=== PATIENT | female | born 1970 | race Caucasian/White ===

== ENCOUNTER → 2023-09-30 | Emergency (ER) | payer SELFPAY ==
[~2023-09-30] MED LIST: ALBUTEROL 2.5 MG/3 ML NEB SOL ONE; HYDROCODONE/APAP 5/325 MG TAB ONE; IPRATROPIUM BROM 0.5MG/2.5ML ONE; NA CHLORIDE 0.9% 1,000 ML ONE; NA CHLORIDE 0.9% 100 ML ONE; NA CHLORIDE 0.9% 250 ML ONE; NA CHLORIDE 0.9% 500 ML ONE; PIPERACIL/TAZO 3.375 GM VIAL IV ONE; VANCOMYCIN 1 GM/VIAL ONE
--- OUTSIDE RECORDS SUMMARY | 2023-09-30 18:50 | XMS REPORT | Continuity of Care Document ---
Author Name Unknown Address [address] [facility] [address] [place] [address] [facility] thconnect Address [address] [facility] [place] [place] [address] Care Team Providers Care Freight Rate Specialist Name Role Phone Pcp, Patient Does Not Have A Primary Care Physic gui CAMERON DOWD Attending Clinician Unavailable CAMERON DOWD Attending Clinician Unavailable STEWART EDWARDS Attending Clinician Unavailable Stewart Edwards MD Attending Clinician CORIN STEIN Attending Clinician Unavailab Corin Grigsby DO Attending Clinician [phone] Payers Payer Name Policy Type Policy Number Effective Date Expirati on Date Source [facility] [id number] 2023 00:00:00 Allergies, Adverse Reactions, Alerts Allergy Name Allergy Type Status Severity Reaction(s) Onset Date Inactive Date Treating Clinician Comments Source NO KNOWN ALLERGIE S Drug Class Active Univers [facility] Social History Social Habit Start Date Stop Date Quantity Comments Source Sexual [facility] History of tobacco use Occasional tobacco smoker [facility] Alcohol intake 2023-09-13 00:00:00 2023-09-13 00:00:00 0 /d [facility] History of Social function 2023-09-13 00:00:00 2023-09-13 00:00:00 [facility] Sex Assigned At 1970 00:00:00 1970 00:00:00 [facility] Smoking Status Start Date Stop Date Source Occasional tobacco smoker Un [facility] Medications Ordered Medication Name Filled Medication Name Start Date Stop Date Current Medication? Ordering Clinician Indication Dosage Frequency Signature (SIG) Comments Components Source acetaminoph en (TYLENOL) tablet 650 mg 2022-10 04:15: 00 09-17 04:26 :00 No 650mg 650 mg, Oral, ONCE, 1 dose, On Tue09/16/23 at 2215, [facility] methocarbam oL (ROBAXIN) tablet 500 mg 2022-10 04:09: 00 09-17 04:26 :00 No 500mg 500 mg, Oral, ONCE NOW, 1 dose, On Tue09/16/23 at 2215, [facility] acute hospital methocarbam oL (ROBAXIN) tablet 1,000 mg 2022-10 12:15: 00 09-13 12:15 :00 No 1000mg 1,000 mg, Oral, ONCE, 1 dose, On Tue09/13/23 at 0615, [facility] acute hospital butalbital- acetaminoph en-caff (ESGIC) 50-325-40 mg tablet 1 tablet 2022-10 07:15: 00 09-13 07:12 :00 No 1{tbl} 1 tablet, Oral, ONCE, 1 dose, On Tue09/13/23 at 0115, [facility] acute hospital NaCl 0.9% (NS) IV infusion 1,000 mL 2022-10 07:00: 00 09-13 08:00 :00 No 1000mL at 999 mL/hr, Intravenou s, ONCE, 1 dose, On Tue09/13/23 at 0100, [facility] methocarbam oL (ROBAXIN) tablet 1,000 mg 2022-10 04:00: 00 09-13 04:15 :00 No 1000mg 1,000 mg, Oral, ONCE, 1 dose, On Tue09/12/23 at 2200, General acute hospital NaCl 0.9% (NS) bolus infusion 1,000 mL 2022-10 03:00: 00 09-13 02:40 :00 No 1000mL at 999 mL/hr, 1,000 mL, IV Piggyback, ONCE, 1 dose, On Tue09/12/23 at 2100, STAT [facility] ibuprofen (IBU) tablet 800 mg 2022-10 02:30: 00 09-13 02:26 :00 No 800mg 800 mg, Oral, ONCE, 1 dose, On Tue09/12/23 at 2030, DAVID [facility] methocarbam oL (ROBAXIN) tablet 1,000 mg 2022-10 15:30: 00 09-09 15:42 :00 No 1000mg 1,000 mg, Oral, ONCE, 1 dose, On Tue09/09/23 at 0930, DAVID [facility] methocarbam oL 750 mg tablet 2022-10 00:00: 00 Yes [id number] 750mg Take 1 tablet by mouth every 6 (six) hours as needed for Pain (scale 1-3). [facility] methocarbam oL 750 mg tablet 2022-10 00:00: 00 Yes [id number] 750mg Take 1 tablet by mouth every 6 (six) hours as needed for Pain (scale 1-3). [facility] methocarbam oL 750 mg tablet 2022-10 00:00: 00 Yes [id number] 750mg Take 1 tablet by mouth every 6 (six) hours as needed for Pain (scale 1-3). [facility] cyclobenzap rine (FLEXERIL) 5 mg tablet 07-01 00:00: 00 Yes 5mg Take 1 tablet by mouth 3 (three) times daily. [facility] naproxen (NAPROSYN) 375 mg tablet 07-01 00:00: 00 Yes 375mg Take 1 tablet by mouth 2 (two) times daily with meals. [facility] cyclobenzap rine (FLEXERIL) 5 mg tablet 07-01 00:00: 00 Yes 5mg Take 1 tablet by mouth 3 (three) times daily. [facility] naproxen (NAPROSYN) 375 mg tablet 07-01 00:00: 00 Yes 375mg Take 1 tablet by mouth 2 (two) times daily with meals. [facility] cyclobenzap rine (FLEXERIL) 5 mg tablet 07-01 00:00: 00 Yes 5mg Take 1 tablet by mouth 3 (three) times daily. [facility] naproxen (NAPROSYN) 375 mg tablet 07-01 00:00: 00 Yes 375mg Take 1 tablet by mouth 2 (two) times daily with meals. [facility] HYDROcodone -acetaminop hen (NORCO) 10-325 mg tablet 05-16 16:15: 10 Yes 1{tbl} Take 1 tablet by mouth every 6 (six) hours as needed. [facility] HYDROcodone -acetaminop hen (NORCO) 10-325 mg tablet 05-16 16:15: 10 Yes 1{tbl} Take 1 tablet by mouth every 6 (six) hours as needed. [facility] HYDROcodone -acetaminop hen (NORCO) 10-325 mg tablet 05-16 16:15: 10 Yes 1{tbl} Take 1 tablet by mouth every 6 (six) hours as needed. [facility] cyclobenzap rine (FLEXERIL) 5 mg tablet 05-16 00:00: 00 Yes 5mg Take 1 tablet by mouth 3 (three) times daily. [facility] cyclobenzap rine (FLEXERIL) 5 mg tablet 05-16 00:00: 00 Yes 5mg Take 1 tablet by mouth 3 (three) times daily. [facility] cyclobenzap rine (FLEXERIL) 5 mg tablet 05-16 00:00: 00 Yes 5mg Take 1 tablet by mouth 3 (three) times daily. [facility] Vital Signs Vital Name Observation Time Observation Value Comments Lior saavedra Systolic blood pressure 2023-09-17 03:32:00 140 mm[Hg] [facility] Diastolic blood pressure 2023-09-17 03:32:00 88 mm[Hg] [facility] Heart rate 2023-09-17 03:32:00 82 /min Un[facility] Body temperature 2023-09-17 03:32:00 37.17 Mamie [facility] Respiratory rate 2023-09-17 03:32:00 32 /min [facility] Body weight 2023-09-17 03:32:00 49.896 kg [facility] BMI 2023-09-17 03:32:00 16.73 kg/m2 [facility] Oxygen saturation in Arterial blood by Pulse oximetry 2023-09-17 03:32:00 98 /min [facility] Systolic blood pressure 2023-09-13 12:00:00 131 mm[Hg] [facility] Diastolic blood pressure 2023-09-13 12:00:00 99 mm[Hg] [facility] Heart rate 2023-09-13 12:00:00 92 /min Un[facility] Body temperature 2023-09-13 12:00:00 37.22 Mamie [facility] Respiratory rate 2023-09-13 12:00:00 18 /min [facility] Oxygen saturation in Arterial blood by Pulse oximetry 2023-09-13 12:00:00 96 /min [facility] Systolic blood pressure 2023-09-09 15:21:00 107 mm[Hg] [facility] Diastolic blood pressure 2023-09-09 15:21:00 87 mm[Hg] [facility] Heart rate 2023-09-09 15:21:00 107 /min [facility] Body temperature 2023-09-09 15:21:00 37 Mamie [facility] Respiratory rate 2023-09-09 15:21:00 22 /min [facility] Body height 2023-09-09 15:21:00 172.7 cm [facility] Body weight 2023-09-09 15:21:00 49.896 kg [facility] BMI 2023-09-09 15:21:00 16.73 kg/m2 [facility] Oxygen saturation in Arterial blood by Pulse oximetry 2023-09-09 15:21:00 97 /min [facility] Procedures Procedure Date / Time Performed Performing Clinician Source POCT TEST 2023-09-13 07:16:00 Stewart Edwards [facility] URINALYSIS 2023-09-13 07:14:00 Stewart Edwards [facility] COMP. METABOLIC PANEL ([id number]) 2023-09-13 01:58:00 Stewart Edwards [facility] SALICYLATE 2023-09-13 01:58:00 Stewart Edwards [facility] ETHANOL 2023-09-13 01:58:00 [facility] URINE DRUG (IMMUNOASSAY) - COMPREHENSIVE DRUG SCREEN 2023-09-13 01:58:00 Stewart Edwards [facility] CBC WITH DIFF 2023-09-13 01:58:00 Stewart Edwards [facility] COVID-19 (MOLECULAR TESTING NUCLEIC ACID AMPLIFICATION) 2023-09-13 01:58:00 Stewart dEwards [facility] COVID-19 (ID NOW RAPID TESTING) 2023-09-13 01:58:00 Stewart Edwards [facility] NOTICE OF PRIVACY PRACTICES 2023-09-09 15:15:21 Doctor Unassigned, [place] [facility] CONSENT/REFUSAL FOR DIAGNOSIS AND TREATMENT 2023-09-09 15:13:57 Doctor Unassigned, [place] [facility] Encounters Start Date/Time End Date/Time Encounter Type Admission Type Attending Clinicians Care Facility Care Department Encounter ID Source 2023-09-19 17:08:55 2023-09-19 17:08:55 Outpatient [facility] [id number] Severiano Diane 2023-09-16 21:41:00 2023-09-16 23:31:00 Emergency CAMERON NATHAN TIMOTHY [facility] E[facility] [id number] [facility] 2023-09-16 21:41:00 2023-09-16 23:31:00 Emergency [facility] [id number] [facility] 2023-09-16 08:44:22 2023-09-16 08:44:22 Outpatient [facility] [id number] Severiano Diane 2023-09-12 19:54:00 2023-09-13 06:30:00 Emergency X STEWART EDWARDS [facility] ERT [id number] [facility] 2023-09-12 19:54:00 2023-09-13 06:30:00 Emergency Stewart Edwards S [facility] [id number] [facility] 2023-09-09 09:23:00 2023-09-09 09:45:00 Emergency X CORIN STEIN [facility] ERT [id number] [facility] 2023-09-09 09:23:00 2023-09-09 09:45:00 Emergency Corin Stein [facility] [id number] [facility] Results Test Description Test Time Test Comments Results Result Co mments Source [facility] WITH [id number] 03:07:33* Test Item Value Reference Range Interpretation Comme nts WBC (test code = 6690-2) 11.28 See_Comment H [Automated messa ge] The system which generated this result transmitted reference range: 4.30 - 11.10 10*3/?L. The reference range was not used to interpret this result as normal/abnormal. RBC (test code = 789-8) 3.50 See_Comment L [Automated messa ge] The system which generated this result transmitted reference range: 3.93 - 5.25 10*6/?L. The reference range was not used to interpret this result as normal/abnormal. HGB (test code = 718-7) 11.3 g/dL 11.6-15.0 L HCT (test code = 4544-3) 32.1 % 35.7-45.2 L MCV (test code = 787-2) 91.7 fL 80.6-95.5 MCH (test code = 785-6) 32.3 pg 25.9-32.8 MCHC (test code = 786-4) 35.2 g/dL 31.6-35.1 H RDW-SD (test code = 76276-8) 38.4 fL 39.0-49.9 L RDW-CV (test code = 788-0) 11.6 % 12.0-15.5 L PLT (test code = 777-3) 70 See_Comment L [Automated [employer]] The system which generated this result transmitted reference range: 166 - 358 10*3/?L. The reference range was not used to interpret this result as normal/abnormal. MPV (test code = 30005-6) 9.9 fL 9.5-12.9 IPF % (test code = 1784109680) 7.7 % 1.3-7.7 Platelet count measured by fluorescence method. NRBC/100 WBC (test code = 6598023151) 0.4 See_Comment [Automated [employer]] The system which generated this result transmitted reference range: 0.0 - 10.0 /100 WBCs. The reference range was not used to interpret this result as normal/abnormal. NRBC x10^3 (test code = 4166464913) 0.04 See_Comment [Automated [employer]] The system which generated this result transmitted reference range: 10*3/?L. The reference range was not used to interpret this result as normal/abnormal. GRAN MAT (NEUT) % (test code = 770-8) 68.6 % IMM GRAN % (test code = 4526800162) 7.50 % LYMPH % (test code = 736-9) 14.5 % MONO % (test code = 5905-5) 5.2 % EOS % (test code = 713-8) 3.5 % BASO % (test code = 706-2) 0.7 % GRAN MAT x10^3(ANC) (test code = 7550961584) 7.73 10*3/uL 1.88-7.09 H IMM GRAN x10^3 (test code = 0554861439) 0.85 10*3/uL 0.00-0.06 H LYMPH x10^3 (test code = 731-0) 1.63 10*3/uL 1.32-3.29 MONO x10^3 (test code = 742-7) 0.59 10*3/uL 0.33-0.92 EOS x10^3 (test code = 711-2) 0.40 10*3/uL 0.03-0.39 H BASO x10^3 (test code = 704-7) 0.08 10*3/uL 0.01-0.07 H BANDS (test code = 8334586637) Increased A REACT LYMPHS (test code = 8863187334) Rare TOXIC CHANGES (test code = 803-7) Present A GIANT PLATELETS (test code = 5908-9) Present See_Comment A [Automated [employer]] The system which generated this result transmitted reference range: (none). The reference range was not used to interpret this result as normal/abnormal. Lab Interpretation (test code = 04424-9) [facility]normal [facility] 02:37:25 SALICYLATE<10mg/L111/12/2022 8:37 PM [facility]Therapeutic Range: ? Analgesic and Antipyretic Use ? 20- 100 mg/L ? ? Anti-Inflammatory Use ? 100-250 mg/L Toxic Range: ? Greater than 300 mg/[facility]OL2023-11-28 02:37:20ALCOHOL<10mg/dL09/12/2023 8:37 PM [facility]<10 Axpowfdi52-961 Toxic>100 Depression of WIRE WEAVER CLOTH>400 Fatalities ReportedEastland Memorial HospitalACETAMINOPHEN2023-11-28 02:37:15* Test Item Value Reference Range Interpretation Comme nts ACETAMINOP (test code = 7392258535) 10.0-30.0 L YAZMIN (test code = YAZMIN) Toxic: Greater rosalva n 200 ug/mL @ 4 hour post ingestion or greater than 50 ug/mL @ 12 hour post ingestion Lab Interpretation (test code = 47532-1) Abnormal [facility]OLIC PANEL (89424)2023-09-13 02:28:22* Test Item Value Reference Range Interpretation Comme nts NA (test code = 9089448106) 135 mmol/L 135-145 K (test code = 5561291588) 3.9 mmol/L 3.5-5.0 CL (test code = 7857668611) 98 mmol/L 98-108 CO2 TOTAL (test code = 0462446905) 29 mmol/L 23-31 AGAP (test code = 6160243903) 8 2-16 BUN (test code = 8398699524) 17 mg/dL 7-23 GLUCOSE (test code = 8530910433) 114 mg/dL 70-110 H CREATININE (test code = 9722221723) 0.72 mg/dL 0.50-1.04 TOTAL BILI (test code = 2566859557) 1.1 mg/dL 0.1-1.1 CALCIUM (test code = 3664956672) 10.1 mg/dL 8.6-10.6 T PROTEIN (test code = 5795026041) 7.2 g/dL 6.3-8.2 ALBUMIN (test code = 4251809870) 4.3 g/dL 3.5-5.0 ALK PHOS (test code = 0028879478) 209 U/L 34-122 H ALTv (test code = 1742-6) 16 U/L 5-35 AST(SGOT) (test code = 1766785381) 93 U/L 13-40 H eGFR (test code = 64265-4) 100.1 mL/min/1.73m2 CKD-EPI eGFR (2020). Assuming creatinine has been stable day-to-day for at least three months, the eGFR indicates Category G1 (>= 90 mL/min/1.73 m2) Lab Interpretation (test code = 61421-8) Abnormal [facility]
[2023-09-30 19:55] LABS: Albumin 2.7 g/dL (3.4-5.0); Bilirubin Direct 0.3 mg/dL (0-0.2); Bilirubin Indirect, Calculated 0.5 mg/dL (0.2-0.8); Bilirubin Total 0.8 mg/dL (0.2-1.0); Magnesium 2.5 mg/dL (1.6-2.4); Potassium 3.9 mEq/L (3.5-5.1); Protein, Total 7.3 g/dL (6.4-8.2)
[2023-09-30 20:02] LABS: Absolute Lymphocytes (CBC) 2.2 K/uL (0.7-4.9); Hematocrit 8.1 % (36.0-45.0); Lymphocytes % 24.5 % (15.3-44.8); MCV 91.8 fL (80-100); MPV 8.6 fL (7.6-11.3); Platelets 33 thou/uL (152-406); RBC Red Blood Cell Count 0.88 M/uL (3.86-4.86)
[2023-09-30 20:16] LABS: Troponin High Sensitivity 328.5 pg/mL (<58.9)
[2023-09-30 20:17] LABS: Specific Gravity 1.013 (1.005-1.030)
[2023-09-30 20:20] LABS: Specific Gravity 1.013 (1.005-1.030); Urine Bacteria <20 /HPF (<20); Urine Bilirubin NEGATIVE (Negative); Urine Blood Negative (Negative); Urine Clarity Turbid (Clear); Urine Color Light-Yellow (Yellow); Urine Glucose NEGATIVE (Negative); Urine Mucus Slight /HPF (None Seen); Urine Protein NEGATIVE (Negative); Urine RBC <5 /HPF (None Seen); Urine Urobilinogen Normal (Normal)
[2023-09-30 20:21] LABS: SARS-COV-2 RT PCR NEGATIVE (NEGATIVE)
[2023-09-30 20:25] LABS: Protime INR 1.41
[2023-09-30 20:27] LABS: Barbiturates NEGATIVE (NEGATIVE); Benzodiazepines NEGATIVE (NEGATIVE); Cocaine NEGATIVE (NEGATIVE); METHAMPHETAM NEGATIVE (NEGATIVE); Methadone NEGATIVE (NEGATIVE); Opiates NEGATIVE (NEGATIVE); Phencyclidine NEGATIVE (NEGATIVE); THC Cannibis NEGATIVE (NEGATIVE)
--- NOTE | 2023-09-30 20:52 | RAD REPORT ---
EXAM DESCRIPTION: CT - Head C Spine Mpr Wo Con - 09/30/2023 8:04 pm CLINICAL HISTORY: Head and neck injury status post fall. Head and neck pain COMPARISON: None. TECHNIQUE: Computed axial tomography of the head and cervical spine was obtained. Sagittal and coronal reconstruction was performed. All CT scans are performed using dose optimization technique as appropriate and may include automated exposure control or mA/KV adjustment according to patient size. FINDINGS: An intracranial bleed is not seen. The ventricles are normal in caliber. No significant hypodensity within the brain. An extra-axial fluid collection is not noted. Fluid within the visualized sinuses and mastoids is not seen 14 millimeter lytic lesion is present within the left aspect of the T2 vertebral body. There is corti sharon disruption and mild compression of the vertebral body. Slight anterior subluxation C4 on C5. Slight posterior subluxation of C6 on C7. Loss of the normal lo rdosis may be secondary to muscle spasm. No fracture or dislocation noted. Us spondylosis distal cerv ical spine IMPRESSION: No acute intracranial abnormality is seen. A cervical fracture is not visualized. 14 millimeter lytic lesion T2 vertebral body with mild compression. This may represent a pathologic f racture. It is recommended that the patient have an MRI of the thoracic spine for further evaluation If the patient continues to have symptoms to suggest intracranial /spinal cord pathology then MRI wou ld be recommended
[2023-09-30 20:53] LABS: Blood Morphology Comment NOTED (NOT SEEN); Hypochromasia 1+; Platelet Estimate DECR; White Blood Cell Scan OK (OK)
--- NOTE | 2023-09-30 20:55 | RAD REPORT ---
EXAM DESCRIPTION: Sherri Single View09/30/2023 7:15 pm CLINICAL HISTORY: Chest pain COMPARISON: none FINDINGS: Moderate bilateral interstitial opacities The heart is normal size IMPRESSION: Moderate bilateral interstitial lung opacities. These may represent an acute process suc h as viral pneumonia or pneumonitis superimposed over pulmonary fibrosis
--- NOTE | 2023-10-01 | ER ---
Nurse's Notes [facility] Name: Susan Castro Age: 52 yrs Sex: Female : 1970 Arrival Date: 09/30/2023 Time: 18:44 Bed 4 Private MD: Diagnosis: Other specified anemias;Thrombocytopenia, unspecified;Other specified sepsis;Pneumonia in diseases classified elsewhere Presentation: 09/30 18:49 Chief complaint: Found in car by mother today, last seen 2 normal weeks ago. Pt reports hb SOB and chest pain for "about a month.". Coronavirus screen: Client presents with at least one sign or symptom that may indicate coronavirus-19. Provider contacted for isolation considerations. Ebola Screen: No symptoms or risks identified at this time. 18:49 Method Of Arrival: Wheelchair hb 19:03 Initial Sepsis Screen: Does the patient meet any 2 criteria? No. Patient's initial hb sepsis screen is negative. Does the patient have a suspected source of infection? No. Patient's initial sepsis screen is negative. Risk Assessment: Do you want to hurt yourself or someone else? Patient reports no desire to harm self or others. Onset of symptoms is unknown. 19:03 Acuity: LEONARDO 2 hb Historical: - Allergies: 19:03 No Known Allergies; hb - Home Meds: 19:03 None [Active]; hb - PMHx: 19:03 None; hb - PSHx: 19:03 None; hb - Immunization history:: Adult Immunizations up to date. - Social history:: Smoking status: Patient denies any tobacco usage or history of. Screenin:00 [facility] ED Fall Risk Assessment (Adult) History of falling in the last 3 months, rv including since admission Yes- single mechanical fall (1 pt) Score/Fall Risk Level 3 or more points = High Risk Oriented to surroundings, Maintained a safe environment, Educated pt \\T\\ family on fall prevention, incl call for assistance when getting out of bed, Assessed \\T\\ reinforced patient's understanding of fall precautions. Abuse screen: Denies threats or abuse. Denies injuries from another. Nutritional screening: No deficits noted. Tuberculosis screening: No symptoms or risk factors identified. Assessment: 19:00 General: Appears uncomfortable, ill, Behavior is calm, cooperative. rv 19:00 Pain: Complains of pain in chest Pain does not radiate. Pain began suddenly. Neuro: rv Level of Consciousness is awake, alert, obeys commands, Oriented to person, place, time, situation. Cardiovascular: Capillary refill is > 3 seconds Patient's skin is warm and dry. Rhythm is regular. Respiratory: Reports shortness of breath at rest Airway is patent Respiratory effort is even, unlabored. GI: No signs and/or symptoms were reported involving the gastrointestinal system. : No signs and/or symptoms were reported regarding the genitourinary system. Derm: Skin is pale. 20:00 Reassessment: No changes from previously documented assessment. Patient and/or family rv updated on plan of care and expected duration. Pain level reassessed. 21:06 Reassessment: No changes from previously documented assessment. Patient and/or family rv updated on plan of care and expected duration. Pain level reassessed. 22:00 Reassessment: No changes from previously documented assessment. Patient and/or family rv updated on plan of care and expected duration. Pain level reassessed. 23:00 Reassessment: No changes from previously documented assessment. Patient and/or family rv updated on plan of care and expected duration. Pain level reassessed. 10/01 00:00 Reassessment: No changes from previously documented assessment. Patient and/or family rv updated on plan of care and expected duration. Pain level reassessed. 01:00 Reassessment: No changes from previously documented assessment. Patient and/or family rv updated on plan of care and expected duration. Pain level reassessed. 02:00 Reassessment: No changes from previously documented assessment. Patient and/or family rv updated on plan of care and expected duration. Pain level reassessed. 03:41 Reassessment: No changes from previously documented assessment. Patient and/or family rv updated on plan of care and expected duration. Pain level reassessed. Vital Signs: 09/30 19:03 BP 147 / 35; Pulse 102; Resp 28; Temp 98.1(A); Pulse Ox 94% on R/A; Pain 8/10; hb 20:03 BP 114 / 59; Pulse 94; Resp 18; Pulse Ox 96% ; rv1 20:40 Weight 47.63 kg; ko1 21:00 BP 106 / 69; Pulse 99; Resp 18; Pulse Ox 96% ; rv1 22:00 BP 109 / 62; Pulse 105; Resp 22; Pulse Ox 100% ; rv1 23:00 BP 106 / 65; Pulse 102; Resp 19; Pulse Ox 100% ; rv1 10/01 00:00 BP 124 / 74; Pulse 98; Resp 18; Pulse Ox 100% ; rv1 01:00 BP 115 / 75; Pulse 94; Resp 22; Pulse Ox 100% ; rv 02:00 BP 116 / 71; Pulse 89; Resp 20; Pulse Ox 100% on R/A; rv 03:00 BP 106 / 78; Pulse 85; Resp 22; Pulse Ox 100% on R/A; rv 03:30 BP 118 / 78; Pulse 82; Resp 23; Pulse Ox 100% on R/A; rv 04:25 BP 119 / 77; Pulse 87; Resp 19; Temp 98.2; Pulse Ox 99% on R/A; rv 09/30 19:03 Pain Scale: Adult hb Alvaro Coma Score: 01:00 Eye Response: spontaneous(4). Motor Response: obeys commands(6). Verbal Response: rv oriented(5). Total: 15. 02:00 Eye Response: spontaneous(4). Motor Response: obeys commands(6). Verbal Response: rv oriented(5). Total: 15. 03:00 Eye Response: spontaneous(4). Motor Response: obeys commands(6). Verbal Response: rv oriented(5). Total: 15. 03:30 Eye Response: spontaneous(4). Motor Response: obeys commands(6). Verbal Response: rv oriented(5). Total: 15. 04:25 Eye Response: spontaneous(4). Motor Response: obeys commands(6). Verbal Response: rv oriented(5). Total: 15. ED Course: 09/30 18:48 Patient arrived in ED. gm2 18:51 Marty Loya PA is PHCP. cp 18:51 Nate Arechiga MD is Attending Physician. cp 19:00 Patient has correct armband on for positive identification. Provided Education on: rv anemia, gi bleed. Client placed on continuous cardiac and pulse oximetry monitoring. NIBP monitoring applied. library monitor on. 19:03 Triage completed. hb 19:04 Arm band placed on. hb 19:15 No provider procedures requiring assistance completed. Inserted saline lock: 20 gauge rv in left antecubital area, using aseptic technique. Blood collected. 19:16 XRAY Chest (1 view) In Process Unspecified. EDMS 19:30 Inserted saline lock: 20 gauge in right antecubital area, using aseptic technique. rv Blood collected. 19:49 Eugenie Gonzalez, RN is Primary Nurse. ko1 20:04 CT Head C Spine In Process Unspecified. EDMS 21:32 Woo Wallace MD is Attending Physician. cp 22:26 Angio Aorta For Dissection In Process Unspecified. EDMS 10/01 00:16 Initiated transfer with Priya Murcia at [facility]. rv1 01:05 Connected Marty FLORIAN to Dr. Kingsley at [facility]. rv1 01:23 Patient maintains SpO2 saturation greater than 95% on room air. rv 02:13 Missed attempt(s): 20 gauge in left forearm. 22 gauge in left hand. rv 03:[address] Kingsley [address] [facility] [address]. rv1 04:25 Patient transferred, IV remains in place. rv Administered Medications: 09/30 20:31 Discontinued: ns 0.9% 1000 ml IV at 1000 ml/hr Per protocol; 1000 mL bolus cp 20:30 Drug: NS 0.9% IV 1000 ml IV at 1000 ml/hr Per protocol; 1000 mL bolus Route: IV; Rate: ko1 1000 ml/hr; Site: right antecubital; 20:41 Follow up: IV Status: Order to discontinue infusion ko1 20:30 Drug: NS 0.9% IV (30 ml/kg) 30 ml/kg IV at bolus once; Sepsis Protocol Route: IV; Rate: ko1 bolus; Site: right antecubital; 21:26 Follow up: IV Status: Completed infusion; IV Intake: 1500ml rv 22:07 Not Given (NOT APPROPRIATE AT THIS TIMEe): DuoNeb Nebulize (2.5 mg - 0.5 mg) 3 ml rv Nebulizer once 10/01 00:23 Drug: Piperacillin-Tazobactam IVPB 3.375 grams IVPB once over 60 mins; (mix in NS 100 rv mL) Route: IVPB; Infused Over: 60 mins; Site: left antecubital; 01:00 Follow up: IV Status: Completed infusion; IV Intake: 100ml rv 03:42 Follow up: Response: No adverse reaction rv 01:00 Drug: vancoMYCIN IVPB 1 grams IVPB once over 2 hrs Route: IVPB; Infused Over: 2 hrs; rv Site: left antecubital; 03:41 Follow up: IV Status: Completed infusion; IV Intake: 250ml rv 03:42 Follow up: Response: No adverse reaction rv 04:19 Drug: HYDROcodone-acetaminophen PO 5 mg-325 mg 1 tabs PO once Route: PO; km8 04:25 Follow up: Response: Medication administered at discharge. rv Medication: 09/30 19:00 VIS not applicable for this client. rv 10/01 03:37 Blood products: PRBCs X 2 units given. Platelets X 1 unit given. See transfusion record.rv Intake: 09/30 21:26 IV: 1500ml; Total: 1500ml. rv 10/01 01:00 IV: 100ml; Total: 1600ml. rv 03:41 IV: 250ml; Total: 1850ml. rv Outcome: 00:00 ER care complete, transfer ordered by . cp 04:26 Transferred by ground EMS to [facility], Transfer form completed. rv X-rays sent w/ patient. 04:26 Condition: good 04:26 Instructed on the need for admit, 04:30 Patient left the ED. rv Signatures: Dispatcher [employer] EDMS Marty Loya PA PA cp Baxter, Heather, RN Rangel Berg RN RN rv Eugenie Gonzalez, MAYRA RN [email or web address] aTtum Gonzalez rv1 Bridget Lorenzana 2 Elisa Mcneil, RN RN km8
--- NOTE | 2023-10-01 | EDPHYS ---
Physician Documentation [facility] Name: Susan Castro Age: 52 yrs Sex: Female : 1970 Arrival Date: 09/30/2023 Time: 18:44 Bed 4 Private MD: ED Physician Woo Wallace HPI: 09/30 19:10 This 52 yrs old Female presents to ER via Wheelchair with complaints of Chest Pain, cp Fall Injury. 19:10 The patient has shortness of breath at rest. cp 19:10 Onset: The symptoms/episode began/occurred gradually, and became worse today. Duration: cp The symptoms are continuous, and are steadily getting worse. Patient is a 52-year-old female with no significant past medical history who presents to the emergency department with her mother after reported fall earlier today. Mother states she was found her at home and patient was complaining of shortness of breath. She presents to the emergency department with complaints of chest pain from the fall and increasing shortness of breath. Historical: - Allergies: 19:03 No Known Allergies; hb - Home Meds: 19:03 None [Active]; hb - PMHx: 19:03 None; hb - PSHx: 19:03 None; hb - Immunization history:: Adult Immunizations up to date. - Social history:: Smoking status: Patient denies any tobacco usage or history of. ROS: 19:15 Constitutional: Negative for body aches, chills, fever, poor PO intake, cp 19:15 Eyes: Negative for injury, pain, redness, and discharge, cp 19:15 ENT: Negative for drainage from ear(s), ear pain, sore throat, difficulty swallowing, difficulty handling secretions, hoarseness, 19:15 Cardiovascular: Positive for chest pain, Negative for edema, palpitations, 19:15 Respiratory: Positive for cough, shortness of breath, at rest. 19:15 Abdomen/GI: Negative for abdominal pain, vomiting, diarrhea, constipation, black/tarry stool, rectal bleeding, 19:15 Back: Negative for radiated pain, 19:15 : Negative for urinary symptoms, cp 19:15 Skin: Negative for rash, 19:15 Neuro: Positive for weakness, Negative for altered mental status, headache, syncope, 19:15 All other systems are negative, cp Exam: 19:20 Constitutional: The patient appears alert, awake, non-diaphoretic, well developed, well cp nourished, in obvious distress, mildly distressed, obviously ill, pale, 19:20 Head/Face: Normocephalic, atraumatic. cp 19:20 Eyes: Periorbital structures: appear normal, Pupils: equal, round, and reactive to light and accomodation, Extraocular movements: intact throughout, Conjunctiva: normal, no exudate, no injection, Sclera: no appreciated abnormality, Lids and lashes: appear normal, bilaterally, 19:20 ENT: External ear(s): are unremarkable, Nose: is normal, Mouth: Lips: dry, Oral mucosa: dry, Posterior pharynx: Airway: no evidence of obstruction, patent, Tonsils: no enlargement, no erythema, no exudate, erythema, is not appreciated, exudate, is not appreciated, 19:20 Neck: ROM/movement: is normal, is supple, without pain, no range of motions limitations, no meningismus, no nuchal rigidity, 19:20 Chest/axilla: Inspection: normal, Palpation: is normal, no crepitus, no tenderness, 19:20 Cardiovascular: Rate: tachycardic, Rhythm: regular, Edema: is not appreciated, JVD: is not appreciated, 19:20 Respiratory: mild respiratory distress is noted, Respirations: labored breathing, that is mild, Breath sounds: are clear throughout, no decreased breath sounds, no stridor, no wheezing, 19:20 Abdomen/GI: Inspection: abdomen appears normal, Bowel sounds: active, all quadrants, Palpation: abdomen is soft and non-tender, in all quadrants, 19:20 Back: pain, is absent, ROM is normal, 19:20 Skin: Appearance: Color: jaundiced, pale, cellulitis, is not appreciated, no rash present. 19:20 Neuro: Orientation: to person, place \T\ time. Mentation: able to follow commands, Cerebellar function: is grossly normal, Motor: moves all fours, general weakness with no focal deficits, Sensation: no obvious gross deficits, 20:25 ECG was reviewed by the Attending Physician. cp 21:00 : Rectal exam: Stool: brown, soft, cp Vital Signs: 19:03 BP 147 / 35; Pulse 102; Resp 28; Temp 98.1(A); Pulse Ox 94% on R/A; Pain 8/10; hb 20:03 BP 114 / 59; Pulse 94; Resp 18; Pulse Ox 96% ; rv1 20:40 Weight 47.63 kg; ko1 21:00 BP 106 / 69; Pulse 99; Resp 18; Pulse Ox 96% ; rv1 22:00 BP 109 / 62; Pulse 105; Resp 22; Pulse Ox 100% ; rv1 23:00 BP 106 / 65; Pulse 102; Resp 19; Pulse Ox 100% ; rv1 12 00:00 BP 124 / 74; Pulse 98; Resp 18; Pulse Ox 100% ; rv1 01:00 BP 115 / 75; Pulse 94; Resp 22; Pulse Ox 100% ; rv 02:00 BP 116 / 71; Pulse 89; Resp 20; Pulse Ox 100% on R/A; rv 03:00 BP 106 / 78; Pulse 85; Resp 22; Pulse Ox 100% on R/A; rv 03:30 BP 118 / 78; Pulse 82; Resp 23; Pulse Ox 100% on R/A; rv 04:25 BP 119 / 77; Pulse 87; Resp 19; Temp 98.2; Pulse Ox 99% on R/A; rv 09/30 19:03 Pain Scale: Adult hb Alvaro Coma Score: 01:00 Eye Response: spontaneous(4). Motor Response: obeys commands(6). Verbal Response: rv oriented(5). Total: 15. 02:00 Eye Response: spontaneous(4). Motor Response: obeys commands(6). Verbal Response: rv oriented(5). Total: 15. 03:00 Eye Response: spontaneous(4). Motor Response: obeys commands(6). Verbal Response: rv oriented(5). Total: 15. 03:30 Eye Response: spontaneous(4). Motor Response: obeys commands(6). Verbal Response: rv oriented(5). Total: 15. 04:25 Eye Response: spontaneous(4). Motor Response: obeys commands(6). Verbal Response: rv oriented(5). Total: 15. MDM: 09/30 18:51 Patient medically screened. 10/01 01:42 Data reviewed: vital signs, nurses notes, lab test result(s), EKG, radiologic studies, cp CT scan, plain films. Management of patient was discussed with the following: Hospitalist: Dr. Kingsley, hospitalist at [facility], will not accept patient at this time until a repeat hemoglobin after transfusion of 2 units of RBCs is given. Also request labs to be added on of a retic count, LDH, and haptoglobin test. Dr. Kingsley request reinitiation of transfer through the transfer center once these labs are drawn and the repeat hemoglobin is resulted so patient can be transferred to PCU unit for continued care under Dr. Carrillo. 03:21 ED course: Repeat hemoglobin has improved. Per report from Marty Loya [facility] rn physician would not accept patient until further tests performed, 2 units of blood were administered, and wanted a repeat hemoglobin. We tried to call [facility] back regarding EMTALA but no answer 3 times. Patient is hemodynamically stable and still requires transfer for higher level of care, awaiting to hear back from [facility].. 09/30 19: Order name: Basic Metabolic Panel; Complete Time: 20:28 09/30 20:09 Interpretation: Normal except: NA 135; CO2 20; ANION GAP 16.9; GLUC 153; BUN 30; GFR 81. 09/30 19:01 Order name: CBC with Diff; Complete Time: 21:16 09/30 20:11 Interpretation: Normal except: RBC 0.88; HGB 2.9; HCT 8.1; PLT 33; RDW 15.8. 09/30 19: Order name: D-Dimer; Complete Time: 20:28 09/30 19: Order name: LFT's; Complete Time: 20:28 10/01 01:25 Interpretation: Normal except: AST 193; ALK 861; BILID 0.3; ALB 2.7; GLOB 4.6; A/G 0.6. 09/30 19: Order name: Magnesium; Complete Time: 20:28 09/30 19: Order name: NT PRO-BNP; Complete Time: 20:28 09/30 19: Order name: PT-INR; Complete Time: 20:28 09/30 19: Order name: Troponin HS; Complete Time: 20:28 09/30 19: Order name: Urinalysis W/Microscopic; Complete Time: 20:28 09/30 19:01 Order name: PREGU; Complete Time: 20:28 09/30 19:01 Order name: UDS; Complete Time: 20:28 09/30 19:01 Order name: COVID-19/FLU A+B; Complete Time: 20:28 09/30 19:05 Order name: Lactate w/ 2H reflex if indic.; Complete Time: 20:28 09/30 19:05 Order name: Blood Culture Adult (2) 09/30 19:08 Order name: ETOH Level; Complete Time: 21:16 09/30 19:08 Order name: AMMONIA; Complete Time: 20:08 09/30 19:09 Order name: Ptt, Activated; Complete Time: 20:28 09/30 19:15 Order name: Glucose, Ancillary Testing; Complete Time: 20:08 [facility] 09/30 20:23 Order name: Type And Screen 09/30 20:43 Order name: ABO/RH typing [facility] 09/30 20:43 Order name: Packed RBC Leukored [facility] 09/30 20:54 Order name: CBC Smear Scan; Complete Time: 21:16 [facility] 09/30 22:12 Order name: ABO/RH no charge; Complete Time: 22:15 [facility] 09/30 22:55 Order name: Platelets, Leukored Pheresis [facility] 09/30 23:17 Order name: Antibody Screen [facility] 09/30 23:36 Order name: Lactate Sepsis 2 HR Follow-up; Complete Time: 23:48 [facility] 10/01 01:42 Order name: LAB Add On 10/01 01:42 Order name: Retic Count; Complete Time: 02:51 10/01 01:54 Order name: Lactic Dehydrogenase; Complete Time: 02:51 [facility] 10/01 01:54 Order name: Haptoglobin [facility] 10/01 02:51 Order name: CBC with Diff; Complete Time: 03:51 rn 09/30 19:01 Order name: XRAY Chest (1 view); Complete Time: 21:16 09/30 21:17 Interpretation: Report review. 09/30 19:05 Order name: CT Head C Spine; Complete Time: 21:16 09/30 21:18 Interpretation: Reviewed report. 09/30 21:57 Order name: Angio Aorta For Dissection [facility] 09/30 19:01 Order name: EKG; Complete Time: 19:03 cp 09/30 19:01 Order name: Cardiac monitoring; Complete Time: 19:30 cp 09/30 19:01 Order name: EKG - Nurse/Tech; Complete Time: 20:45 cp 09/30 19:01 Order name: IV Saline Lock; Complete Time: 19:30 cp 09/30 19:01 Order name: Labs collected and sent; Complete Time: 19:30 cp 09/30 19:01 Order name: O2 Per Protocol; Complete Time: 19:30 cp 09/30 19:01 Order name: O2 Sat Monitoring; Complete Time: 19:30 cp 09/30 19:05 Order name: Munson; Complete Time: 19:56 cp 09/30 19:38 Order name: Misc. Order: RECOLLECT LAVENDER AND BLUE TOP ; Complete Time: 19:56 rv1 09/30 21:16 Order name: Transfuse; Complete Time: 21:26 cp EC/15 20:25 Rate is 97 beats/min. Rhythm is regular. MI interval is normal. QRS interval is normal. cp QT interval is normal. T waves are Inverted in lead aVR. Interpreted by me. Reviewed by me. Administered Medications: 20:31 Discontinued: ns 0.9% 1000 ml IV at 1000 ml/hr Per protocol; 1000 mL bolus cp 20:30 Drug: NS 0.9% IV 1000 ml IV at 1000 ml/hr Per protocol; 1000 mL bolus Route: IV; Rate: ko1 1000 ml/hr; Site: right antecubital; 20:41 Follow up: IV Status: Order to discontinue infusion ko1 20:30 Drug: NS 0.9% IV (30 ml/kg) 30 ml/kg IV at bolus once; Sepsis Protocol Route: IV; Rate: ko1 bolus; Site: right antecubital; 21:26 Follow up: IV Status: Completed infusion; IV Intake: 1500ml rv 22:07 Not Given (NOT APPROPRIATE AT THIS TIMEe): DuoNeb Nebulize (2.5 mg - 0.5 mg) 3 ml rv Nebulizer once 10/01 00:23 Drug: Piperacillin-Tazobactam IVPB 3.375 grams IVPB once over 60 mins; (mix in NS 100 rv mL) Route: IVPB; Infused Over: 60 mins; Site: left antecubital; 01:00 Follow up: IV Status: Completed infusion; IV Intake: 100ml rv 03:42 Follow up: Response: No adverse reaction rv 01:00 Drug: vancoMYCIN IVPB 1 grams IVPB once over 2 hrs Route: IVPB; Infused Over: 2 hrs; rv Site: left antecubital; 03:41 Follow up: IV Status: Completed infusion; IV Intake: 250ml rv 03:42 Follow up: Response: No adverse reaction rv 04:19 Drug: HYDROcodone-acetaminophen PO 5 mg-325 mg 1 tabs PO once Route: PO; km8 04:25 Follow up: Response: Medication administered at discharge. rv Disposition Summary: 10/01/23 00:00 Transfer Ordered Notes: Transfer Location: Other Acute Care Facility cp Reason: Higher level of care cp Condition: Stable cp Problem: new cp Symptoms: have improved cp Accepting Physician: Doctor(10/01/23 04:30) rv Diagnosis - Other specified anemias cp - Thrombocytopenia, unspecified cp - Other specified sepsis cp - Pneumonia in diseases classified elsewhere cp Forms: - Medication Reconciliation Form cp - SBAR form cp Signatures: Dispatcher [employer] EDMS Woo Wallace MD MD rn Page, Corey, PA PA cp Cecile Whitaker, RN RN Rangel Chen RN MAYRA rv Eugenie Gonzalez, RN RN ko1 Tatum Gonzalez rv1 Elisa Mcneil, RN RN km8 Corrections: (The following items were deleted from the chart) 09/30 20:39 20:35 Type and Screen ordered. EDMS EDMS 20:45 20:39 Type and Screen ordered. EDMS EDMS 22:43 22:36 Fresh Frozen Plasma ordered. EDMS EDMS 23:19 23:01 Angio Aorta For Dissection+CT.RAD.BRZ ordered. EDMS EDMS 10/01 00:12 00:00 Doctor cp cp 01:50 09/30 19:20 Skin: cellulitis, is not appreciated, no rash present. cp cp 10/01 04:13 09/30 19:30 TEST, SERUM+SC.LAB.BRZ ordered. EDMS EDMS 10/01 04:13 09/30 23:01 TYPE AND SCREEN+BB.LAB.BRZ ordered. EDMS EDMS 10/01 04:30 00:12 Doctor cp rv
[2023-10-01 01:58] LABS: RBC Red Blood Cell Count 0.89 M/uL (3.86-4.86)
[2023-10-01 03:06] LABS: Absolute Lymphocytes (CBC) 1.4 K/uL (0.7-4.9); Hematocrit 15.6 % (36.0-45.0); Lymphocytes % 26.8 % (15.3-44.8); MCV 85.8 fL (80-100); MPV 7.6 fL (7.6-11.3); Platelets 41 thou/uL (152-406); RBC Red Blood Cell Count 1.82 M/uL (3.86-4.86)
[2023-10-01 08:52] VITALS: BP 119/77; TEMP 98.2; O2SAT 99
--- NOTE | 2023-10-03 11:06 | RAD REPORT ---
EXAM DESCRIPTION: CT CHEST ABDOMEN PELVIS ANGIOGRAPHY WITH IV CONTRAST CLINICAL HISTORY: Female, 52 years old, CHEST PAIN; SOB COMPARISON: None. TECHNIQUE: CT acquisition of the chest, abdomen, and pelvis following the administration of IV contr ast in angiographic phase. Coronal and sagittal reformatted images provided. Maximal intensity projec tion and/or 3D sequences were created by the technologist. This exam was performed according to [facility] program which includes automated exposure control, adjustment of the mA and /or kV according to patient size, and/or use of iterative reconstruction technique. FINDINGS: SUPPORTIVE DEVICES: Munson catheter in place. LOWER NECK: Unremarkable. CHEST: Mediastinum/justyn: Incidental 4 vessel aortic arch, with otherwise normal appearance. No evidence of c entral obstructing pulmonary embolism. Large multistation conglomerate adenopathy involving the media stinum and justyn which appears to encase but not invaded the great vessels. Normal appearance of the e sophagus. Heart: Normal size. No pericardial thickening or effusion. No coronary artery calcifications. Lungs: Diffuse irregular interstitial thickening throughout both lungs, as well as smooth interlobula r septal thickening in the lung apices. Multifocal ill-defined groundglass opacities. Branching scarr ing/atelectasis in the left upper lobe. Subpleural nodule in the anterior right middle lobe measuring 8 x 6 mm, with additional smaller nodules scattered throughout both lungs. No pulmonary mass. Centra l airways are clear. Pleural Space: No pleural effusion or pneumothorax. ABDOMEN AND PELVIS: Liver: Subcapsular hypodense 1.6 cm lesion at the hepatic tip. Additional ill-defined hypodense lesio n in segment V (series 4 to image 167/331). Gallbladder and bile ducts: Normal. Pancreas: Normal. Spleen: Normal. Adrenal glands: Normal. Kidneys and ureters: Normal. Bladder: Contracted around a Munson catheter. Reproductive organs: Unremarkable. GI tract: Suspected mild hypodense wall thickening of the gastric body and antrum. The small bowel is unremarkable. The appendix appears to arise superiorly from the posterior cecum with diameter measur ing up to 15 mm and surrounding soft tissue stranding, although this structure may also represent an abutting enlarged lymph node. The large bowel is mostly nondistended, limiting assessment. Lymph nodes: Extensive retroperitoneal, mesenteric lymphadenopathy (particularly right lower quadrant ), pelvic and iliac chain lymphadenopathy. Peritoneum: No evidence of ascites, fluid collection, or free air. Abdominal wall: No significant hernia. Vessels: Unremarkable. MUSCULOSKELETAL: No acute osseous abnormality. Degenerative change of the spine. IMPRESSION: 1. Normal appearance of the aorta and its branches. 2. Multistation thoracic and abdominopelvic lymphadenopathy highly suspicious for hematologic malig adriana. Additional clinical workup is recommended. 3. Gastric wall thickening also concerning for lymphoma versus gastritis. 4. Two indeterminate hepatic hypodense lesions which do not appear to represent simple cysts. 5. A structure appearing to be the appendix is enlarged with adjacent inflammatory stranding, altho ugh this also may represent an enlarged mesenteric lymph node. Consider surgical consultation if ther e is sufficient concern for acute appendicitis. 6. Irregular interstitial thickening in both lungs with multiple subcentimeter pulmonary nodules; i nfectious, inflammatory, malignant, and interstitial lung disease etiologies are possible. Electronically signed by: Octavio Watkins MD 09/30/2023 11:40 PM MEDICAL RADIATION DOSIMETRIST Due to temporary technical issues with the PACS/Fluency reporting system, reports are being signed by the in house radiologists without review as a courtesy to insure prompt reporting. The interpreting radiologist is fully responsible for the content of the report.
--- NOTE | 2023-10-03 12:32 | EKG ---
Test Date: 2023-09-30 Test Time: 20:17:16 [employer] Coverer: [place] MEASUREMENT RESULTS: Intervals: Rate: 97 ME: 114 QRSD: 84 QT: 326 QTc: 414 [place]: P: 82 ME: 114 QRS: 73 T: 5 INTERPRETIVE STATEMENTS: Normal sinus rhythm Normal ECG No previous ECG available for comparison Electronically Signed On 10-03-23 12:27:21 KELP CUTTER by Joe Leavitt
== END ==
LOC: ER 18:44
PROC: 30233N1 Transfusion of Nonautologous Red Blood Cells into Peripheral Vein, Percutaneous Approach (ICD-10-PCS; principal; 2023-09-30)
DX: D64.89 Other specified anemias (principal); J18.9 Pneumonia, unspecified organism; A41.89 Other specified sepsis; D69.6 Thrombocytopenia, unspecified; Z11.52 Encounter for screening for COVID-19
CPT/HCPCS: 0240U; 36415; 36430; 70450; 71045; 71275; 72125; 74175; 80048; 80076; 80307; 81001; 81025; 82077; 82140; 82947; 83010; 83605; 83735; 83880; 84484; 85025; 85044; 85379; 85610; 85730; 86850; 86900; 86901; 86920; 87040; 93005; 99285; J7030; J7040; J7050; J7613; J7644; P9016; Q9967